=== PATIENT | male | born 1980 | race Caucasian/White ===

== ENCOUNTER 2017-09-04 13:15 | Inpatient (IN) | payer MEDICAID, OTHER ==
[~2017-09-04] VITALS: Ht 180.3 cm; Wt 71.6 kg
[~2017-09-04 13:15] MED LIST: ARIP10TA8 PO; ASPI-1182 PO; PANT40TA25 PO
[2017-09-04] MEDS ORDERED: ARIP300S3 IM (13:20)
[2017-09-04] MEDS ORDERED: ACETAMINOPHEN 500 MG TABLET PO ONE (13:45)
[2017-09-04 14:02] LABS: BASOPHILS % (AUTO) 0.7 % (0.0-2.0); EOSINOPHILS % (AUTO) 2.1 % (1.0-6.0); HEMATOCRIT 43.7 % (41-53); HEMOGLOBIN 14.8 g/dL (13.5-17.5); LYMPHOCYTES # (AUTO) 2.4 K/uL (1.0-4.8); LYMPHOCYTES % (AUTO) 34.5 % (22.0-44.0); MEAN CORPUSCULAR HEMOGLOBIN 31.1 pg (26.0-34.0); MEAN CORPUSCULAR HGB CONC 33.9 G/dL (31.0-37.0); MEAN CORPUSCULAR VOLUME 92 fL (80-100); MONOCYTES # (AUTO) 0.4 K/uL (0.1-1.0); MONOCYTES % (AUTO) 5.9 % (2.0-9.0); NEUTROPHILS % (AUTO) 56.8 % (40.0-70.0); PLATELET COUNT (AUTO) 176 K/uL (150-450); RED BLOOD CELL COUNT(AUTO) 4.75 MIL/uL (4.50-5.90); RED CELL DISTRIBUTION WIDTH 14.8 % (11.5-14.5); WHITE BLOOD COUNT (AUTO) 7.1 K/uL (4.5-11.0)
[2017-09-04 14:21] LABS: B-TYPE NATRIURETIC PEPTIDE 18 pg/mL (0-100)
[2017-09-04 14:25] LABS: ANION GAP 5 mmol/L (8-16); CALCIUM, TOTAL 8.9 mg/dL (8.8-10.5); CARBON DIOXIDE 31 mmol/L (22-29); CHLORIDE 103 mmol/L (98-107); CREATININE 0.61 mg/dL (0.60-1.30); GLOMERULAR FILTR. RATE CALC > 60 mL/min (>60); POTASSIUM 3.6 mmol/L (3.5-5.1); SODIUM SERUM 139 mmol/L (136-145); UREA NITROGEN, BLOOD 12 mg/dL (7-18)
[2017-09-04 14:30] LABS: ALANINE AMINOTRANSFERASE 28 U/L (12-78); ALBUMIN 3.1 g/dL (3.4-5.0); ASPARTATE AMINOTRANSFERASE 21 U/L (15-37); BILIRUBIN,TOTAL 0.5 mg/dL (0.1-1.0); CREATINE KINASE, TOTAL 45 U/L (39-308); TOTAL PROTEIN, SERUM 6.5 g/dL (6.4-8.2)
[2017-09-04] MEDS ORDERED: LORazepam 2 MG TABLET PO PRN (17:00)
[2017-09-04] MEDS ORDERED: QUEtiapine FUMARATE 100 MG TABLET PO PRN (17:00)
[2017-09-04] MEDS ORDERED: ZOLPIDEM TARTRATE 10 MG TABLET PO PRN (17:00)
[2017-09-04 18:07] LABS: APPEARANCE,URINE CLEAR (CLEAR); GLUCOSE, URINE (UA) NEGATIVE (NEGATIVE); KETONES,URINE NEGATIVE (NEGATIVE); LEUKOCYTE ESTERASE ,URINE NEGATIVE (NEGATIVE); OCCULT BLOOD,URINE NEGATIVE (NEGATIVE); PROTEIN,URINE NEGATIVE (NEGATIVE)
[2017-09-04 18:10] LABS: ADD UA MICROSCOPIC NO
[2017-09-04 18:20] VITALS: BP 103/64
[2017-09-05] MEDS ORDERED: QUEtiapine FUMARATE 100 MG TABLET PO SCH (21:00)
[2017-09-06 07:45] LABS: BASOPHILS # (AUTO) 0.07 K/uL (0.00-0.20); BASOPHILS % (AUTO) 0.6 % (0.0-2.0); EOSINOPHILS # (AUTO) 0.16 K/uL (0.00-0.70); EOSINOPHILS % (AUTO) 1.33 % (1.0-6.0); HEMATOCRIT 47.2 % (41-53); HEMOGLOBIN 15.4 g/dL (13.5-17.5); LYMPHOCYTES # (AUTO) 2.2 K/uL (1.0-4.8); LYMPHOCYTES % (AUTO) 18.7 % (22.0-44.0); MEAN CORPUSCULAR HEMOGLOBIN 28.7 pg (26.0-34.0); MEAN CORPUSCULAR HGB CONC 32.6 G/dL (31.0-37.0); MEAN CORPUSCULAR VOLUME 88 fL (80-100); MONOCYTES # (AUTO) 0.8 K/uL (0.1-1.0); MONOCYTES % (AUTO) 6.4 % (2.0-9.0); NEUTROPHILS # (AUTO) 8.8 K/uL (1.8-7.7); NEUTROPHILS % (AUTO) 73.1 % (40.0-70.0); PLATELET COUNT (AUTO) 261 K/uL (150-450); RED BLOOD CELL COUNT(AUTO) 5.36 MIL/uL (4.50-5.90); RED CELL DISTRIBUTION WIDTH 17.2 % (11.5-14.5)
[2017-09-06 08:09] LABS: ALBUMIN 3.5 g/dL (3.4-5.0); BILIRUBIN,TOTAL 0.5 mg/dL (0.1-1.0); CALCIUM, TOTAL 8.8 mg/dL (8.8-10.5); CREATININE 1.4 mg/dL (0.60-1.30); POTASSIUM 4.7 mmol/L (3.5-5.1); THYROID STIMULATING HORMONE 48.49 uIU/mL (0.36-3.74); TOTAL PROTEIN, SERUM 6.9 g/dL (6.4-8.2)
[2017-09-06] MEDS ORDERED: ARIPiprazole ER SUSPENSION 400 MG PRE-FILLED DUAL CHAMBER SYRINGE IM SCH ×2 (10:45)
[2017-09-06] MEDS ORDERED: QUET100T PO (10:46)
== END 2017-09-06 12:00 | disposition home or self-care (01) | DRG 754 ==
LOC: EMS 13:16 → 3EI 17:41
PROVIDERS: ADMIT Psychiatry & Neurology Child & Adolescent Psychiatry; ATTEND Psychiatry & Neurology Child & Adolescent Psychiatry
DX: F32.9 Major depressive disorder, single episode, unspecified (principal); I42.9 Cardiomyopathy, unspecified; R45.851 Suicidal ideations; F20.9 Schizophrenia, unspecified; R07.9 Chest pain, unspecified; G40.909 Epilepsy, unspecified, not intractable, without status epilepticus; Z95.0 Presence of cardiac pacemaker; J45.909 Unspecified asthma, uncomplicated; K21.9 Gastro-esophageal reflux disease without esophagitis; Z86.711 Personal history of pulmonary embolism; Z86.718 Personal history of other venous thrombosis and embolism; Z88.1 Allergy status to other antibiotic agents; Z88.8 Allergy status to other drugs, medicaments and biological substances; Z88.0 Allergy status to penicillin; Z91.013 Allergy to seafood
CPT/HCPCS: 84439; 84443; 93005; 99285; G0480; J0401

== ENCOUNTER 2017-12-29 14:22 | Inpatient (IN) | payer MEDICAID, OTHER ==
[~2017-12-29] VITALS: Ht 180.3 cm; Wt 70.6 kg
[~2017-12-29 14:22] MED LIST changes: -ARIP10TA8 PO; +ARIP300S3 IM; -ASPI-1182 PO; -PANT40TA25 PO; +QUET100T PO
[2017-12-29] MEDS ORDERED: LORazepam 2 MG/ML VIAL IM ONE (15:00)
[2017-12-29] MEDS ORDERED: FluPHENAZine HCL 2.5 MG/ML INJ IM ONE (15:00)
[2017-12-29 15:27] LABS: BASOPHILS % (AUTO) 0.9 % (0.0-2.0); EOSINOPHILS % (AUTO) 1.5 % (1.0-6.0); HEMATOCRIT 45.1 % (41-53); HEMOGLOBIN 15.4 g/dL (13.5-17.5); LYMPHOCYTES # (AUTO) 2.1 K/uL (1.0-4.8); LYMPHOCYTES % (AUTO) 36.3 % (22.0-44.0); MEAN CORPUSCULAR HEMOGLOBIN 30.8 pg (26.0-34.0); MEAN CORPUSCULAR HGB CONC 34.2 G/dL (31.0-37.0); MEAN CORPUSCULAR VOLUME 90 fL (80-100); MONOCYTES # (AUTO) 0.4 K/uL (0.1-1.0); MONOCYTES % (AUTO) 6.8 % (2.0-9.0); NEUTROPHILS # (AUTO) 3.2 K/uL (1.8-7.7); NEUTROPHILS % (AUTO) 54.5 % (40.0-70.0); PLATELET COUNT (AUTO) 176 K/uL (150-450); RED BLOOD CELL COUNT(AUTO) 5.01 MIL/uL (4.50-5.90)
[2017-12-29 15:32] LABS: AMPHET/METH SCREEN,URINE NEGATIVE (NEGATIVE); BARBITURATE SCREEN, URINE NEGATIVE (NEGATIVE); BENZODIAZEPINES SCREEN,URINE NEGATIVE (NEGATIVE); CANNABINOID SCREEN,URINE POSITIVE (NEGATIVE); COCAINE SCREEN,URINE NEGATIVE (NEGATIVE); METHADONE SCREEN, URINE NEGATIVE (NEGATIVE); OPIATE SCREEN,URINE NEGATIVE (NEGATIVE); PHENCYCLIDINE SCREEN,URINE NEGATIVE (NEGATIVE)
[2017-12-29 15:43] LABS: ALANINE AMINOTRANSFERASE 23 U/L (12-78); ALBUMIN 3.6 g/dL (3.4-5.0); ALKALINE PHOSPHATASE 75 U/L (46-116); ANION GAP 10 mmol/L (8-16); ASPARTATE AMINOTRANSFERASE 22 U/L (15-37); BILIRUBIN,TOTAL 0.4 mg/dL (0.1-1.0); CARBON DIOXIDE 26 mmol/L (22-29); CHLORIDE 103 mmol/L (98-107); GLOMERULAR FILTR. RATE CALC > 60 mL/min (>60); GLUCOSE,RANDOM 94 mg/dL (70-110); POTASSIUM 3.7 mmol/L (3.5-5.1); SODIUM SERUM 139 mmol/L (136-145); TOTAL PROTEIN, SERUM 7.1 g/dL (6.4-8.2)
[2017-12-29 15:55] LABS: UREA NITROGEN, BLOOD 9 mg/dL (7-18)
[2017-12-29] MEDS ORDERED: ZOLPIDEM TARTRATE 10 MG TABLET PO PRN (16:45)
[2017-12-29] MEDS ORDERED: QUEtiapine FUMARATE 100 MG TABLET PO PRN (16:45)
[2017-12-29 18:28] VITALS: BP 98/60
[2017-12-29] MEDS: QUEtiapine FUMARATE 200 MG TABLET PO SCH (20:16)
[2017-12-29] MEDS ORDERED: QUEtiapine FUMARATE 100 MG TABLET PO SCH (21:00)
[2017-12-30] MEDS ORDERED: ACETAMINOPHEN 325 MG TABLET PO PRN ×2 (06:45→17:30)
[2017-12-30] MEDS ORDERED: IBUPROFEN 400 MG TABLET PO PRN ×2 (06:45→17:30)
[2017-12-30] MEDS: LORazepam 2 MG TABLET PO PRN (14:15)
[2017-12-30] MEDS ORDERED: ALBUTEROL SULFATE HFA 90 MCG/PUFF 8 GM INHALER IH PRN (17:30)
[2017-12-30] MEDS: LevETIRAcetam 500 MG TABLET PO SCH (18:04)
[2017-12-30] MEDS: HYDROCORTISONE 1% 30 GM OINTMENT TP SCH (18:04)
[2017-12-30] MEDS: QUEtiapine FUMARATE 200 MG TABLET PO SCH (20:25)
[2017-12-31] MEDS: LevETIRAcetam 500 MG TABLET PO SCH ×2 (08:22→16:46)
[2017-12-31] MEDS: OMEPRAZOLE 20 MG CAPSULE PO SCH (08:22)
[2017-12-31] MEDS: HYDROCORTISONE 1% 30 GM OINTMENT TP SCH ×2 (08:24→16:46)
[2017-12-31] MEDS: LORazepam 2 MG TABLET PO PRN ×2 (08:42→17:13)
[2017-12-31] MEDS ORDERED: NICOTINE 14 MG/24 HOUR PATCH TD SCH (17:15)
[2017-12-31] MEDS ORDERED: ARIP400S3 IM (17:15)
[2017-12-31] MEDS ORDERED: NICOTINE 21 MG/24 HOUR PATCH TD ONE (17:45)
[2017-12-31 19:39] VITALS: BP 114/60
[2017-12-31] MEDS: QUEtiapine FUMARATE 200 MG TABLET PO SCH (21:45)
[2018-01-01 08:13] VITALS: BP 103/63
[2018-01-01] MEDS ORDERED: NICOTINE 14 MG/24 HOUR PATCH TD SCH (09:00)
[2018-01-01] MEDS: HYDROCORTISONE 1% 30 GM OINTMENT TP SCH ×2 (09:00→16:03)
[2018-01-01] MEDS: LevETIRAcetam 500 MG TABLET PO SCH ×2 (10:15→16:03)
[2018-01-01] MEDS: OMEPRAZOLE 20 MG CAPSULE PO SCH (10:16)
[2018-01-01 16:00] VITALS: BP 115/62
[2018-01-01] MEDS ORDERED: LEVE500T8 PO (16:13)
[2018-01-01] MEDS ORDERED: OMEP10SU2 PO (16:14)
[2018-01-01] MEDS ORDERED: QUET50TA PO (17:02)
[2018-01-01] MEDS ORDERED: OMEP20 PO (17:17)
== END 2018-01-01 18:00 | disposition home or self-care (01) | DRG 750 ==
LOC: EEVIPCON 14:22 → EMS 14:26 → 3EC 17:37
PROVIDERS: ADMIT Psychiatry & Neurology Psychiatry; ATTEND Psychiatry & Neurology Psychiatry
DX: F25.0 Schizoaffective disorder, bipolar type (principal); I42.9 Cardiomyopathy, unspecified; R45.851 Suicidal ideations; G40.909 Epilepsy, unspecified, not intractable, without status epilepticus; F41.9 Anxiety disorder, unspecified; F10.10 Alcohol abuse, uncomplicated; F12.90 Cannabis use, unspecified, uncomplicated; F17.200 Nicotine dependence, unspecified, uncomplicated; J45.909 Unspecified asthma, uncomplicated; K21.9 Gastro-esophageal reflux disease without esophagitis; R21 Rash and other nonspecific skin eruption; F60.3 Borderline personality disorder; Z71.51 Drug abuse counseling and surveillance of drug abuser; Z86.711 Personal history of pulmonary embolism; Z95.0 Presence of cardiac pacemaker; Z88.1 Allergy status to other antibiotic agents; Z88.0 Allergy status to penicillin; Z91.013 Allergy to seafood; Z88.8 Allergy status to other drugs, medicaments and biological substances; Z91.018 Allergy to other foods; Z79.899 Other long term (current) drug therapy
CPT/HCPCS: G0480; J2060; J3490

== ENCOUNTER 2018-06-17 22:06 | Inpatient (IN) | payer MEDICAID, OTHER ==
[~2018-06-17] VITALS: Ht 180.3 cm; Wt 70.3 kg
[~2018-06-17 22:06] MED LIST changes: -ARIP300S3 IM; +LEVE500T8 PO; +OMEP20 PO; -QUET100T PO; +QUET50TA PO
[2018-06-17] MEDS ORDERED: ARIP400S3 IM (22:12)
[2018-06-17 22:31] LABS: BASOPHILS % (AUTO) 0.7 % (0.0-2.0); EOSINOPHILS % (AUTO) 1.4 % (1.0-6.0); HEMOGLOBIN 15.2 g/dL (13.5-17.5); LYMPHOCYTES # (AUTO) 2.4 K/uL (1.0-4.8); LYMPHOCYTES % (AUTO) 38.2 % (22.0-44.0); MEAN CORPUSCULAR HEMOGLOBIN 31.1 pg (26.0-34.0); MEAN CORPUSCULAR HGB CONC 34.5 G/dL (31.0-37.0); MEAN CORPUSCULAR VOLUME 90 fL (80-100); MONOCYTES # (AUTO) 0.5 K/uL (0.1-1.0); MONOCYTES % (AUTO) 8.5 % (2.0-9.0); NEUTROPHILS # (AUTO) 3.2 K/uL (1.8-7.7); NEUTROPHILS % (AUTO) 51.2 % (40.0-70.0); PLATELET COUNT (AUTO) 163 K/uL (150-450); RED BLOOD CELL COUNT(AUTO) 4.89 MIL/uL (4.50-5.90); RED CELL DISTRIBUTION WIDTH 13.6 % (11.5-14.5)
[2018-06-17 22:44] LABS: ANION GAP 5 mmol/L (8-16); CARBON DIOXIDE 28 mmol/L (22-29); CHLORIDE 106 mmol/L (98-107); CREATININE 0.79 mg/dL (0.60-1.30); GLOMERULAR FILTR. RATE CALC > 60 mL/min (>60); GLUCOSE,RANDOM 114 mg/dL (70-110); POTASSIUM 3.7 mmol/L (3.5-5.1); SODIUM SERUM 139 mmol/L (136-145); UREA NITROGEN, BLOOD 16 mg/dL (7-18)
[2018-06-17 22:52] LABS: ALANINE AMINOTRANSFERASE 31 U/L (12-78); ALBUMIN 3.5 g/dL (3.4-5.0); ALKALINE PHOSPHATASE 79 U/L (46-116); ASPARTATE AMINOTRANSFERASE 21 U/L (15-37); BILIRUBIN,TOTAL 0.3 mg/dL (0.1-1.0)
[2018-06-18] MEDS ORDERED: QUEtiapine FUMARATE 100 MG TABLET PO ONE (04:45)
[2018-06-18] MEDS ORDERED: ZOLPIDEM TARTRATE 10 MG TABLET PO PRN (06:30)
[2018-06-18] MEDS ORDERED: LORazepam 2 MG TABLET PO PRN (06:30)
[2018-06-18 08:00] LABS: AMPHET/METH SCREEN,URINE NEGATIVE (NEGATIVE); BARBITURATE SCREEN, URINE NEGATIVE (NEGATIVE); BENZODIAZEPINES SCREEN,URINE NEGATIVE (NEGATIVE); CANNABINOID SCREEN,URINE POSITIVE (NEGATIVE); COCAINE SCREEN,URINE NEGATIVE (NEGATIVE); METHADONE SCREEN, URINE NEGATIVE (NEGATIVE); OPIATE SCREEN,URINE NEGATIVE (NEGATIVE)
[2018-06-18 08:07] LABS: PHENCYCLIDINE SCREEN,URINE NEGATIVE (NEGATIVE)
[2018-06-19] MEDS ORDERED: PNEUMOCOCCAL VACCINE POLYVALENT 0.5 ML VIAL [PPSV23] IM ONE (01:15)
[2018-06-19] MEDS ORDERED: LOPERAMIDE HCL 2 MG CAPSULE PO PRN (06:15)
[2018-06-19] MEDS ORDERED: MAG HYDROX/AL HYDROX/SIMETH ES 30 ML SUSPENSION UDCUP PO PRN (06:15)
[2018-06-19] MEDS ORDERED: ACETAMINOPHEN 325 MG TABLET PO PRN (06:15)
[2018-06-19] MEDS ORDERED: PETROLATUM,WHITE 71 GM JELLY TP PRN (06:15)
[2018-06-19] MEDS ORDERED: GuaiFENesin/D-METHORPHAN [SUGAR-FREE] 200-20MG/10 ML SYRUP UDCUP PO PRN (06:15)
[2018-06-19] MEDS ORDERED: ALBUTEROL SULFATE HFA 90 MCG/PUFF 8 GM INHALER IH PRN (06:15)
[2018-06-19] MEDS ORDERED: CloNIDine HCL 0.1 MG TABLET PO PRN (06:15)
[2018-06-19] MEDS ORDERED: ONDANSETRON HCL 4 MG TABLET PO PRN (06:15)
[2018-06-19] MEDS ORDERED: DOCUSATE SODIUM 100 MG CAPSULE PO PRN (06:15)
[2018-06-19] MEDS ORDERED: MAGNESIUM HYDROXIDE SUSPENSION 30 ML UDCUP PO PRN (06:15)
[2018-06-19] MEDS ORDERED: IBUPROFEN 400 MG TABLET PO PRN (06:15)
[2018-06-19] MEDS: LevETIRAcetam 500 MG TABLET PO SCH ×2 (10:27→16:09)
[2018-06-19] MEDS: ARIPiprazole 15 MG TABLET PO SCH (10:27)
[2018-06-19 17:05] VITALS: BP 98/73
[2018-06-19] MEDS: OMEPRAZOLE 20 MG CAPSULE PO SCH (20:56)
[2018-06-19] MEDS: QUEtiapine FUMARATE 200 MG TABLET PO SCH (20:56)
[2018-06-20 09:17] VITALS: BP 113/60
[2018-06-20] MEDS: ARIPiprazole 15 MG TABLET PO SCH (09:31)
[2018-06-20] MEDS: LevETIRAcetam 500 MG TABLET PO SCH ×2 (09:31→16:33)
[2018-06-20] MEDS ORDERED: QUET200T PO (10:58)
[2018-06-20] MEDS ORDERED: ARIPiprazole ER SUSPENSION 400 MG PRE-FILLED DUAL CHAMBER SYRINGE IM SCH (11:00)
[2018-06-20] MEDS: OMEPRAZOLE 20 MG CAPSULE PO SCH (20:23)
[2018-06-20] MEDS: QUEtiapine FUMARATE 200 MG TABLET PO SCH (20:23)
[2018-06-21 09:09] VITALS: BP 105/70
[2018-06-21] MEDS: LevETIRAcetam 500 MG TABLET PO SCH (09:28)
[2018-06-21] MEDS ORDERED: OMEP20 PO (11:23)
[2018-06-21] MEDS ORDERED: LEVE500T53 PO (11:23)
== END 2018-06-21 12:00 | disposition home or self-care (01) | DRG 750 ==
LOC: EMS 22:07 → 3EI 06-18 20:00
PROVIDERS: ATTEND Psychiatry & Neurology Child & Adolescent Psychiatry
DX: F20.9 Schizophrenia, unspecified (principal); I42.9 Cardiomyopathy, unspecified; F31.9 Bipolar disorder, unspecified; D64.9 Anemia, unspecified; F41.9 Anxiety disorder, unspecified; G40.909 Epilepsy, unspecified, not intractable, without status epilepticus; R73.9 Hyperglycemia, unspecified; J45.909 Unspecified asthma, uncomplicated; K21.9 Gastro-esophageal reflux disease without esophagitis; Z95.0 Presence of cardiac pacemaker; Z88.0 Allergy status to penicillin; Z88.8 Allergy status to other drugs, medicaments and biological substances; Z91.013 Allergy to seafood; Z88.7 Allergy status to serum and vaccine; Z91.018 Allergy to other foods; Z86.711 Personal history of pulmonary embolism
CPT/HCPCS: 99285; G0480; J0401

== ENCOUNTER 2019-02-03 14:29 | Inpatient (IN) | payer MEDICAID ==
[~2019-02-03] VITALS: Ht 180.3 cm; Wt 71.7 kg
[~2019-02-03 14:29] MED LIST changes: +ARIP15TA2 PO; +DSS100 PO; +LEVE500T53 PO; -LEVE500T8 PO; +QUET200T PO; +QUET200T29 PO; -QUET50TA PO
[2019-02-03 15:44] VITALS: BP 100/67
[2019-02-03] MEDS ORDERED: OLANZapine 5 MG RAPDIS TABLET PO PRN (16:00)
[2019-02-03] MEDS ORDERED: LORazepam 2 MG TABLET PO PRN (16:00)
[2019-02-03] MEDS ORDERED: ZOLPIDEM TARTRATE 10 MG TABLET PO PRN (16:00)
[2019-02-03 17:06] VITALS: BP 109/57
[2019-02-04] MEDS ORDERED: PETROLATUM,WHITE 28 GM JELLY TP PRN (10:00)
[2019-02-04] MEDS ORDERED: LOPERAMIDE HCL 2 MG CAPSULE PO PRN (10:00)
[2019-02-04] MEDS ORDERED: ONDANSETRON HCL 4 MG TABLET PO PRN (10:00)
[2019-02-04] MEDS ORDERED: BACITRACIN 28.4 GM OINTMENT TP PRN (10:00)
[2019-02-04] MEDS ORDERED: CloNIDine HCL 0.1 MG TABLET PO PRN (10:00)
[2019-02-04] MEDS ORDERED: IBUPROFEN 600 MG TABLET PO PRN (10:00)
[2019-02-04] MEDS ORDERED: MAG HYDROX/AL HYDROX/SIMETH ES 30 ML SUSPENSION UDCUP PO PRN (10:00)
[2019-02-04] MEDS ORDERED: MAGNESIUM HYDROXIDE SUSPENSION 30 ML UDCUP PO PRN (10:00)
[2019-02-04] MEDS ORDERED: BENZOCAINE/MENTHOL LOZENGE MM PRN (10:00)
[2019-02-04] MEDS ORDERED: ALBUTEROL SULFATE HFA 90 MCG/PUFF 8 GM INHALER IH PRN (10:00)
[2019-02-04] MEDS ORDERED: ACETAMINOPHEN 325 MG TABLET PO PRN (10:00)
[2019-02-04] MEDS: LevETIRAcetam 500 MG TABLET PO SCH ×2 (10:31→17:07)
[2019-02-04] MEDS: ChlorproMAZINE HCL 100 MG TABLET PO SCH (21:00)
[2019-02-05] MEDS: LEVOTHYROXINE SODIUM 100 MCG TABLET PO SCH ×2 (06:30→07:08)
[2019-02-05] MEDS: LevETIRAcetam 500 MG TABLET PO SCH ×2 (09:58→16:32)
[2019-02-05] MEDS: ChlorproMAZINE HCL 100 MG TABLET PO SCH (20:52)
[2019-02-06] MEDS: LevETIRAcetam 500 MG TABLET PO SCH ×2 (09:00→09:24)
[2019-02-06] MEDS ORDERED: CHLO100T23 PO (09:53)
[2019-02-06] MEDS ORDERED: LEVO100T13 PO (10:36)
[2019-02-06] MEDS ORDERED: LEVE500T99 PO (10:37)
[2019-02-06] MEDS ORDERED: CHLO100T24 PO ×3 (10:47→10:50)
== END 2019-02-06 13:15 | disposition home or self-care (01) | DRG 750 ==
LOC: B2S 16:00
DX: F25.1 Schizoaffective disorder, depressive type (principal); I42.9 Cardiomyopathy, unspecified; I50.9 Heart failure, unspecified; G40.909 Epilepsy, unspecified, not intractable, without status epilepticus; E03.9 Hypothyroidism, unspecified; F12.10 Cannabis abuse, uncomplicated; F15.10 Other stimulant abuse, uncomplicated; G47.00 Insomnia, unspecified; I34.1 Nonrheumatic mitral (valve) prolapse; J44.9 Chronic obstructive pulmonary disease, unspecified; K59.00 Constipation, unspecified; F17.200 Nicotine dependence, unspecified, uncomplicated; R45.851 Suicidal ideations; Z59.0 Homelessness; Z86.711 Personal history of pulmonary embolism; Z86.718 Personal history of other venous thrombosis and embolism; Z91.5 Personal history of self-harm; Z95.828 Presence of other vascular implants and grafts; Z95.0 Presence of cardiac pacemaker; Z88.0 Allergy status to penicillin; Z91.013 Allergy to seafood; Z88.8 Allergy status to other drugs, medicaments and biological substances; Z91.018 Allergy to other foods

== ENCOUNTER 2019-07-11 14:21 | Emergency (ER) | payer MEDICAID, OTHER ==
[~2019-07-11] VITALS: Ht 180.3 cm; Wt 75.0 kg
[~2019-07-11 14:21] MED LIST changes: -ARIP15TA2 PO; +CHLO100T23 PO; +CHLO100T24 PO; -DSS100 PO; +LEVO100T13 PO; -OMEP20 PO; -QUET200T PO; -QUET200T29 PO
[2019-07-11] MEDS ORDERED: ADV250 IH (14:27)
[2019-07-11] MEDS ORDERED: ACETAMINOPHEN 500 MG TABLET PO ONE (14:45)
[2019-07-11 14:59] LABS: BASOPHILS % (AUTO) 0.5 % (0.0-2.0); EOSINOPHILS % (AUTO) 0.6 % (1.0-6.0); HEMATOCRIT 39.8 % (41-53); HEMOGLOBIN 13.4 g/dL (13.5-17.5); LYMPHOCYTES # (AUTO) 1.7 K/uL (1.0-4.8); LYMPHOCYTES % (AUTO) 23.9 % (22.0-44.0); MEAN CORPUSCULAR HEMOGLOBIN 30.1 pg (26.0-34.0); MEAN CORPUSCULAR HGB CONC 33.7 G/dL (31.0-37.0); MEAN CORPUSCULAR VOLUME 90 fL (80-100); MONOCYTES # (AUTO) 0.6 K/uL (0.1-1.0); MONOCYTES % (AUTO) 8.5 % (2.0-9.0); NEUTROPHILS # (AUTO) 4.6 K/uL (1.8-7.7); NEUTROPHILS % (AUTO) 66.5 % (40.0-70.0); PLATELET COUNT (AUTO) 183 K/uL (150-450); RED BLOOD CELL COUNT(AUTO) 4.44 MIL/uL (4.50-5.90); RED CELL DISTRIBUTION WIDTH 14.3 % (11.5-14.5)
[2019-07-11 15:15] LABS: ANION GAP 9 mmol/L (8-16); CARBON DIOXIDE 28 mmol/L (22-29); CHLORIDE 104 mmol/L (98-107); CREATININE 0.73 mg/dL (0.60-1.30); GLOMERULAR FILTR. RATE CALC > 60 mL/min (>60); GLUCOSE,RANDOM 113 mg/dL (70-110); POTASSIUM 3.9 mmol/L (3.5-5.1); SODIUM SERUM 141 mmol/L (136-145); UREA NITROGEN, BLOOD 15 mg/dL (7-18)
[2019-07-11 15:21] LABS: B-TYPE NATRIURETIC PEPTIDE 20 pg/mL (0-100)
[2019-07-11 17:00] VITALS: BP 113/74
== END 2019-07-11 17:23 | disposition home or self-care (01) ==
LOC: EMS 14:23
DX: R07.89 Other chest pain (principal); R00.2 Palpitations; F31.9 Bipolar disorder, unspecified; F20.9 Schizophrenia, unspecified; Z95.0 Presence of cardiac pacemaker; Z88.1 Allergy status to other antibiotic agents; Z88.0 Allergy status to penicillin; Z91.013 Allergy to seafood
CPT/HCPCS: 71250; 85379; 93005

== ENCOUNTER 2024-06-15 19:09 | Emergency (ER) | payer MEDICAID, OTHER ==
[~2024-06-15] VITALS: Ht 180.3 cm; Wt 81.8 kg
[~2024-06-15 19:09] MED LIST changes: +ADV250 IH; -CHLO100T23 PO; -CHLO100T24 PO; +CHLO100T42 PO; +LEVE-71 PO; -LEVE500T53 PO; +OMEP20 PO
[2024-06-15 22:30] LABS: EOSINOPHILS % (AUTO) 2.5 % (1.0-6.0); HEMATOCRIT 43.7 % (41-53); HEMOGLOBIN 14.3 g/dL (13.5-17.5); LYMPHOCYTES # (AUTO) 1.7 K/uL (1.0-4.8); LYMPHOCYTES % (AUTO) 31.4 % (22.0-44.0); MEAN CORPUSCULAR HEMOGLOBIN 29.9 pg (26.0-34.0); MEAN CORPUSCULAR HGB CONC 32.7 G/dL (31.0-37.0); MEAN CORPUSCULAR VOLUME 92 fL (80-100); MONOCYTES # (AUTO) 0.7 K/uL (0.1-1.0); MONOCYTES % (AUTO) 12.3 % (2.0-9.0); NEUTROPHILS # (AUTO) 2.9 K/uL (1.8-7.7); NEUTROPHILS % (AUTO) 52.8 % (40.0-70.0); PLATELET COUNT (AUTO) 184 K/uL (150-450); RED BLOOD CELL COUNT(AUTO) 4.77 MIL/uL (4.50-5.90); WHITE BLOOD COUNT (AUTO) 5.5 K/uL (4.5-11.0)
[2024-06-15 22:40] LABS: ANION GAP 7 mmol/L (8-16); CALCIUM, TOTAL 8.8 mg/dL (8.8-10.5); CARBON DIOXIDE 28 mmol/L (22-29); CHLORIDE 103 mmol/L (98-107); CREATININE 0.59 mg/dL (0.60-1.30); GLOMERULAR FILTR. RATE CALC > 60 mL/min (>60); GLUCOSE,RANDOM 95 mg/dL (70-110); POTASSIUM 4.1 mmol/L (3.5-5.1); SODIUM SERUM 138 mmol/L (136-145); UREA NITROGEN, BLOOD 7 mg/dL (7-18)
[2024-06-15 22:47] LABS: TROPONIN I-HIGH SENSITIVITY 10 ng/L (<76)
[2024-06-16] MEDS: PredniSONE 20 MG TABLET PO ONE (00:35)
[2024-06-16] MEDS: OLANZapine 10 MG TABLET PO ONE (02:41)
[2024-06-16] MEDS: IPRATROPIUM BROMIDE 0.5 MG/2.5 ML NEB SOLUTION NEB ONE (03:03)
[2024-06-16 03:04] VITALS: PULSE 85; PULSE 88; RESP 21; O2SAT 99
[2024-06-16] MEDS: ALBUTEROL SULFATE 2.5 MG/0.5 ML NEB SOLUTION NEB ONE (03:04)
[2024-06-16 05:35] VITALS: BP 121/67; PULSE 85; RESP 21; TEMP 97.6; O2SAT 99
== END 2024-06-16 05:42 | disposition home or self-care (01) ==
LOC: EMS 19:09
DX: R07.89 Other chest pain (principal); F25.9 Schizoaffective disorder, unspecified; R06.02 Shortness of breath; R05.9 Cough, unspecified; Z88.0 Allergy status to penicillin; Z88.1 Allergy status to other antibiotic agents; Z88.8 Allergy status to other drugs, medicaments and biological substances; Z91.018 Allergy to other foods; Z91.048 Other nonmedicinal substance allergy status
CPT/HCPCS: 99285; 71045; 80048; 84484; 85025; 36415; 93005; 94640; G0480; J7512; 94060; J7613